=== PATIENT | female | born 1975 | race African-American/Black ===

== ENCOUNTER 2022-11-08 05:42 | Emergency (ER) | payer BC ==
[~2022-11-08] VITALS: Ht 167.6 cm; Wt 74.4 kg
--- NOTE | 2022-11-08 06:07 | NUR ---
BIBS C/O MIGRAINE HEADACHE X3DAYS, HAD 2 SHOTS OF PRESCRIBED SUMATRIPTAN AT HOME BUT NO RELIEF
--- NOTE | 2022-11-08 06:19 | NUR ---
DR. STOKES AT BEDSIDE
[2022-11-08] MEDS ORDERED: IV NS 0.9% 1,000 ML BAG IV ONE (06:30)
[2022-11-08] MEDS ORDERED: ACETAMINOPHEN ES 500 MG TABLET PO ONE (06:30)
[2022-11-08] MEDS ORDERED: KETOROLAC TROMETHAMINE INJ 30 MG/ML VIAL IV ONE (06:30)
[2022-11-08] MEDS ORDERED: diphenhydrAMINE HCL 50 MG/ML VIAL IV ONE (06:30)
[2022-11-08] MEDS ORDERED: METOCLOPRAMIDE HCL 10 MG/2 ML VIAL IV ONE (06:30)
--- NOTE | 2022-11-08 06:32 | NUR ---
20G STARTED AT R AC
[2022-11-08] MEDS ORDERED: diphenhydrAMINE HCL 50 MG/ML VIAL ONE (06:33)
[2022-11-08] MEDS ORDERED: KETOROLAC TROMETHAMINE 15 MG/ML VIAL ONE (06:34)
[2022-11-08] MEDS ORDERED: METOCLOPRAMIDE HCL 10 MG/2 ML VIAL ONE (06:34)
[2022-11-08] MEDS ORDERED: ACETAMINOPHEN ES 500 MG TABLET ONE (06:34)
--- NOTE | 2022-11-08 06:56 | NUR ---
MEDICATIONS ADMINISTERED ORDERED
[2022-11-08 07:42] VITALS: BP 121/80
--- NOTE | 2022-11-08 07:42 | NUR ---
Patient discharged to home in stable condition. Written and verbal after care instructions given. Patient verbalizes understanding of instruction.IV removed. Catheter intact and site benign. Pressure and 4x4 applied to site. No bleeding noted.
== END 2022-11-08 07:48 | disposition home or self-care (01) ==
LOC: ER 05:58
DX: G43.909 Migraine, unspecified, not intractable, without status migrainosus (principal)
CPT/HCPCS: 99284; 96374; 96375; 96361; J1200; J2765; J7030; J1885